=== PATIENT | female | born 1975 | race Caucasian/White ===

== ENCOUNTER → 2017-02-04 | Outpatient (CLI) | payer OTHER ==
[~2017-02-04] MED LIST: ACYC200C66 PO; DOLU1TAB PO; EMTR1TAB PO; FLUC200T2 PO; METR-1 PO; NYST1000 SWISH-SWAL; SERT-132 PO
[2017-02-04 10:35] LABS: BACTERIA, URINE RARE /hpf; BLOOD, URINE MOD (NEG); COMMENT (UR) CULT NOT INDICATED; CULTURE IF INDICATED CULT NOT INDICATED; GLUCOSE,URINE NEG (NEG); KETONE, URINE NEG (NEG); MUCUS URINE FEW /lpf (OCC); NITRITE,URINE NEG (NEG); SQUAMOUS EPITHELIAL CELL URINE 1 /hpf (0-5); URINE COLOR YELLOW (YELLW/STRAW)
== END ==
LOC: CLAB 10:02
PROVIDERS: ATTEND Nurse Practitioner Family
DX: R35.0 Frequency of micturition (principal)
CPT/HCPCS: 81001

== ENCOUNTER 2017-06-04 11:46 | Emergency (ER) | payer SELFPAY ==
[~2017-06-04] VITALS: Ht 172.7 cm; Wt 100.0 kg
[~2017-06-04 11:46] MED LIST changes: -FLUC200T2 PO; -NYST1000 SWISH-SWAL
[2017-06-04 11:47] VITALS: BP 131/89; PULSE 84; RESP 16; TEMP 98.4; O2SAT 95
--- NOTE | 2017-06-04 13:05 | PD ---
HPI Chief Complaint: GI Complaint Time Seen by Provider: 13:04 Travel History International Travel<30 days: No Contact w/Intl Traveler<30days: No Traveled to known affect area: No History of Present Illness HPI 42-year-old female presents to emergency department requesting a work release note to return back to work. Says she's had body aches and feeling nauseated for the past few weeks. She works tonight and her work is requesting medical clearance. She has no medical complaints at this time. Denies fever, chills, nausea, vomiting, abdominal pain, chest pain, shortness of breath, change in urine or stool. Dr. StrangeNish his primary care provider. Allergies to sulfamethizole and trimethoprim. Symptoms are mild in severity. No other modifying factors or associated signs and symptoms. History Past Medical Histgory Hx Chemotherapy: No Social History Alcohol Use: Yes (OCC) Tobacco Use: Yes (occ) Allergies-Medications (Allergen,Severity, Reaction): Coded Allergies: sulfamethoxazole (Unverified Allergy, Severe, 06/04/17) trimethoprim (Unverified Allergy, Severe, 06/04/17) Reported Meds & Prescriptions Reported Meds & Active Scripts Active Flagyl (Metronidazole) 500 Mg Tab 500 Mg PO BID Acyclovir 200 Mg Cap 400 Mg PO 5 TIMES A DAY Reported Sertraline (Sertraline HCl) 50 Mg Tab 50 Mg PO BID Tivicay (Dolutegravir Sodium) 50 Mg Tab 50 Mg PO DAILY Truvada (Emtricitabine-Tenofovir Disoproxil Fumarate) 200-300 Mg Tab 1 Tab PO DAILY Review of Systems Except as stated in HPI: all other systems reviewed are Neg Physical Exam Narrative GENERAL: Well-nourished, well-developed female patient, in no acute distress; afebrile, nontoxic-appearing SKIN: Warm and dry. HEAD: Atraumatic. Normocephalic. EYES: Pupils equal and round. No scleral icterus. No injection or drainage. ENT: Mucosa pink and moist. Airway patent. NECK: Trachea midline. CARDIOVASCULAR: Regular rate and rhythm. No murmur appreciated. RESPIRATORY: No accessory muscle use. Clear to auscultation. Breath sounds equal bilaterally. GASTROINTESTINAL: Abdomen soft, non-tender, nondistended. Hepatic and splenic margins not palpable. Bowel sounds are active 4 quadrants. MUSCULOSKELETAL: No obvious deformities. No clubbing. No cyanosis. No edema. NEUROLOGICAL: Awake and alert. Oriented 3. No obvious cranial nerve deficits. Motor grossly within normal limits. Normal speech. PSYCHIATRIC: Appropriate mood and affect; insight and judgment normal. Data Data Last Documented VS Vital Signs Date Time Temp Pulse Resp B/P (MAP) Pulse Ox O2 Delivery O2 Flow Rate FiO2 06/04/17 11:47 98.4 84 16 131/89 (103) 95 MDM Medical Screen Exam Complete: Yes Emergency Medical Condition: No Differential Diagnosis Medical clearance Narrative Course 42-year-old female requesting work release note to return back to work. She says she's had body aches and nausea for the past couple weeks which has resolved. She has no medical complaints at this time. Dr. StrangeNish his primary care provider. Vital signs are stable and the patient is stable for outpatient follow-up and treatment. The patient has no urgent or emergent medical complaints. There is no emergent or urgent medical need at this time. I instructed the patient to follow up with their primary care provider. A medical screening exam was performed: At the time of evaluation the presenting medical condition was determined not to be of an emergent nature. The patient was given the option of receiving additional care, but declined. Patient was given options for additional community resources from which to obtain care. The Patient Has Been advised to seek medical attention for their presenting complaint. The patient has been advised to return to the ER at any time if an emergent condition develops. Primary Impression: Encounter for medical screening examination Condition: Stable Soraida Curyr Jun 04, 2017 13:05
== END 2017-06-04 13:14 | disposition left against medical advice (07) ==
LOC: NEPK 11:46
DX: Z02.89 Encounter for other administrative examinations (principal)
CPT/HCPCS: 99281